=== PATIENT | female | born 1950 | race African-American/Black ===

== ENCOUNTER → 2017-07-05 | Outpatient (CLI) | payer OTHER ==
--- NOTE | 2017-07-05 14:49 | REP ---
Chest two views HISTORY: TB exposure Comparison: 06/28/1948 The lungs are clear. The heart is normal in size. The pulmonary vasculature is normal in appearance. The bony structure is intact. IMPRESSION: No acute disease. Signed by Zeeshan Ramirez MD 07/05/2017 02:41 P
== END ==
LOC: M RAD 13:37
PROVIDERS: ATTEND Nurse Practitioner Adult Health
DX: Z02.1 Encounter for pre-employment examination (principal)

== ENCOUNTER 2024-01-28 06:55 | Day surgery (SDC) | payer OTHER, MEDICARE ==
[~2024-01-28] VITALS: Ht 167.6 cm; Wt 81.0 kg
[~2024-01-28 06:55] MED LIST: LEVO-92 PO; METF-839 PO; PHENYLEPHRINE 10% OPHTH SOL 5ML OS PRN; VITA200031 PO
[2024-01-28] MEDS ORDERED: fentaNYL 100 MCG/2 ML INJECTION As Ordered ONE (07:26)
[2024-01-28] MEDS ORDERED: MIDAZOLAM INJ 2MG/2ML VIAL As Ordered ONE (07:26)
[2024-01-28] MEDS: PHENYLEPHRINE 2.5% OPHTH SOL 2ML OS SCH (08:07)
[2024-01-28] MEDS: OFLOXACIN 0.3 % (OCUFLOX) OPTH SOL 5ML OS ONE (08:07)
[2024-01-28] MEDS: TROPICAMIDE 1% OPHTH SOLN 15ML OS SCH (08:07)
[2024-01-28] MEDS: ATROPINE SULFATE 1% OPHTH SOLN 2ML BTL OS SCH (08:07)
[2024-01-28] MEDS: LIDOCAINE 3.5 % 1ML OPHTH TOPICAL GEL OU ONE (08:07)
[2024-01-28] MEDS: CEFUROXIME 1MG/0.1ML INTRACAMERAL INJ As Ordered ONE (08:41)
[2024-01-28] MEDS: LIDOCAINE 1% SDV 5ML VIAL As Ordered ONE (08:41)
[2024-01-28] MEDS: BSS IRRIG/VANCO(10MG)/TOBRA(5MG)/EPINEPH(1:1000-0.5CC)500ML BAG-ORONLY As Ordered ONE (08:50)
[2024-01-28 09:00] VITALS: BP 132/59; TEMP 98; O2SAT 99
== END 2024-01-28 09:05 | disposition home or self-care (01) ==
LOC: M SDC 06:55
PROVIDERS: ATTEND Ophthalmology
DX: H25.12 Age-related nuclear cataract, left eye (principal); R73.03 Prediabetes; E07.9 Disorder of thyroid, unspecified; Z79.899 Other long term (current) drug therapy; Z79.890 Hormone replacement therapy; Z79.84 Long term (current) use of oral hypoglycemic drugs
CPT/HCPCS: 66984; J0697; J2250; V2632

== ENCOUNTER 2024-02-18 08:33 | Day surgery (SDC) | payer OTHER, MEDICARE ==
[~2024-02-18] VITALS: Ht 167.6 cm; Wt 81.6 kg
[~2024-02-18 08:33] MED LIST changes: +MIDAZOLAM INJ 2MG/2ML VIAL As Ordered ONE; +PHENYLEPHRINE 10% OPHTH SOL 5ML OD PRN; -PHENYLEPHRINE 10% OPHTH SOL 5ML OS PRN; +fentaNYL 100 MCG/2 ML INJECTION As Ordered ONE
[2024-02-18] MEDS: OFLOXACIN 0.3 % (OCUFLOX) OPTH SOL 5ML OD ONE (09:11)
[2024-02-18] MEDS: ATROPINE SULFATE 1% OPHTH SOLN 2ML BTL OD SCH (09:11)
[2024-02-18] MEDS: LIDOCAINE 3.5 % 1ML OPHTH TOPICAL GEL OU ONE (09:11)
[2024-02-18] MEDS: PHENYLEPHRINE 2.5% OPHTH SOL 2ML OD SCH (09:12)
[2024-02-18] MEDS: TROPICAMIDE 1% OPHTH SOLN 15ML OD SCH (09:12)
[2024-02-18] MEDS: CEFUROXIME 1MG/0.1ML INTRACAMERAL INJ As Ordered ONE (10:05)
[2024-02-18] MEDS: LIDOCAINE 1% SDV 5ML VIAL As Ordered ONE (10:05)
[2024-02-18] MEDS: BSS IRRIG/VANCO(10MG)/TOBRA(5MG)/EPINEPH(1:1000-0.5CC)500ML BAG-ORONLY As Ordered ONE (10:06)
[2024-02-18 10:19] VITALS: BP 145/77; TEMP 98; O2SAT 98
== END 2024-02-18 10:28 | disposition home or self-care (01) ==
LOC: M SDC 08:33
PROVIDERS: ATTEND Ophthalmology
DX: H25.11 Age-related nuclear cataract, right eye (principal); D75.A Glucose-6-phosphate dehydrogenase (G6PD) deficiency without anemia; E89.0 Postprocedural hypothyroidism; Z98.42 Cataract extraction status, left eye; Z79.899 Other long term (current) drug therapy; Z79.890 Hormone replacement therapy; Z79.84 Long term (current) use of oral hypoglycemic drugs
CPT/HCPCS: 66984; J0697; J2250; J3010; V2632